=== PATIENT | female | born 1960 | race Caucasian/White ===

== ENCOUNTER 2016-08-10 02:33 | Emergency (ER) | payer OTHER ==
[~2016-08-10] VITALS: Ht 157.5 cm; Wt 115.0 kg
[2016-08-10 02:37] VITALS: BP 203/93; PULSE 112; RESP 20; TEMP 99; O2SAT 97
[2016-08-10] MEDS ORDERED: ACETAMINOPHEN/HYDROcodone 325 MG/5 MG TAB PO ONE (03:15)
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
[2016-08-10] MEDS ORDERED: HYDR-3533 PO (03:30)
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
[2016-08-10 06:43] VITALS: BP 176/72; PULSE 89; RESP 14; O2SAT 98
[2016-08-10 07:42] VITALS: BP 168/70
[2016-08-16] MEDS ORDERED: FURO1TAB62 PO ×2 (11:33→12:05)
[2016-08-16] MEDS ORDERED: GABA300C5 PO ×2 (11:33→12:05)
[2016-08-16] MEDS ORDERED: AMLO10 PO ×2 (11:33→12:05)
[2016-08-16] MEDS ORDERED: LISI-519 PO ×2 (11:33→12:05)
[2016-08-16] MEDS ORDERED: SPIR25TA PO (11:33)
[2016-08-16] MEDS ORDERED: ATOR20TA15 PO ×2 (11:33→12:05)
[2016-08-16] MEDS ORDERED: ASPI325T PO (11:33)
[2016-08-29] MEDS ORDERED: DIVA250T3 PO (14:30)
[2016-09-03] MEDS ORDERED: CIPR250T52 PO (11:02)
[2016-09-23] MEDS ORDERED: ATOR20TA15 PO (09:51)
[2016-09-23] MEDS ORDERED: AMLO10 PO (09:51)
[2016-09-23] MEDS ORDERED: LISI-519 PO (09:51)
[2016-09-23] MEDS ORDERED: FURO1TAB62 PO (09:51)
[2016-09-25] MEDS ORDERED: GABA300C5 PO (12:35)
[2016-09-26] MEDS ORDERED: GABA300C5 PO (11:36)
[2016-09-26] MEDS ORDERED: FURO1TAB62 PO (11:36)
[2016-09-26] MEDS ORDERED: ATOR20TA15 PO (11:36)
[2016-09-26] MEDS ORDERED: LISI-519 PO (11:36)
[2016-09-26] MEDS ORDERED: AMLO10 PO (11:36)
== END 2016-08-10 07:58 | disposition home or self-care (01) ==
LOC: NEPB 02:33
DX: S62.101A Fracture of unspecified carpal bone, right wrist, initial encounter for closed fracture (principal); Y04.8XXA Assault by other bodily force, initial encounter
CPT/HCPCS: 29125; 73110; 73130

== ENCOUNTER 2016-08-20 21:15 | Emergency (ER) | payer OTHER ==
[~2016-08-20] VITALS: Ht 162.6 cm; Wt 115.0 kg
[~2016-08-20 21:15] MED LIST: AMLO10 PO; ASPI325T PO; ATOR20TA15 PO; FURO1TAB62 PO; GABA300C5 PO; HYDR-3533 PO; LISI-519 PO; SPIR25TA PO
[2016-08-20 21:17] VITALS: BP 229/131; PULSE 106; RESP 16; TEMP 98.6; O2SAT 95
[2016-08-21 05:22] VITALS: BP 178/91
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
--- NOTE | 2016-08-21 06:41 | RADRPT ---
EXAM DATE/TIME: 08/21/2016 06:18 [facility] COMPARISON: No previous studies available for comparison. INDICATIONS : Patient states no known injury. Pain started yesterday afternoon in palm of left hand. MEDICAL HISTORY : Hypertension. Stroke. SURGICAL HISTORY : None. ENCOUNTER: Initial ACUITY: 1 day PAIN SCORE: 10/10 LOCATION: Left Hand FINDINGS: Three view examination of the left hand demonstrates no soft tissue swelling, dislocation, or fractur e. The carpal bones appear intact. The interphalangeal and metacarpophalangeal joints are intact. Bony mineralization is normal. CONCLUSION: 1. Negative examination of the hand. Gildardo Antonio MD on August 21, 2016 at 6:39 Board Certified Radiologist. This report was verified electronically.
[2016-08-29] MEDS ORDERED: DIVA250T3 PO (14:30)
[2016-09-03] MEDS ORDERED: CIPR250T52 PO (11:02)
[2016-09-23] MEDS ORDERED: ATOR20TA15 PO (09:51)
[2016-09-23] MEDS ORDERED: LISI-519 PO (09:51)
[2016-09-23] MEDS ORDERED: AMLO10 PO (09:51)
[2016-09-23] MEDS ORDERED: FURO1TAB62 PO (09:51)
[2016-09-25] MEDS ORDERED: GABA300C5 PO (12:35)
[2016-09-26] MEDS ORDERED: FURO1TAB62 PO (11:36)
[2016-09-26] MEDS ORDERED: AMLO10 PO (11:36)
[2016-09-26] MEDS ORDERED: ATOR20TA15 PO (11:36)
[2016-09-26] MEDS ORDERED: GABA300C5 PO (11:36)
[2016-09-26] MEDS ORDERED: LISI-519 PO (11:36)
== END 2016-08-21 06:56 | disposition home or self-care (01) ==
LOC: NEPB 21:15
DX: M79.642 Pain in left hand (principal)
CPT/HCPCS: 73130; 99283

== ENCOUNTER 2016-10-08 19:37 | Observation (INO) | payer OTHER ==
[~2016-10-08] VITALS: Ht 157.5 cm; Wt 113.0 kg
[~2016-10-08 19:37] MED LIST changes: +DIVA250T3 PO
[2016-10-08 19:38] VITALS: BP 167/79; PULSE 118; RESP 22; TEMP 98.8; O2SAT 93
[2016-10-08] MEDS ORDERED: SODIUM CHLORIDE 0.9% FLUSH 10 ML FLUSH IVF PRN (20:15)
[2016-10-08] MEDS ORDERED: methylPREDNISolone SOD SUCC 125 MG/2 ML VIAL IVP ONE (20:15)
[2016-10-08] MEDS: RESP: ALBUTEROL 2.5 MG/IPRATROPIUM 0.5 MG NEB (SCH) INH ×2 (20:23→20:24)
[2016-10-08 20:43] LABS: AUTOMATED NEUTROPHIL # 4.3 TH/MM3 (1.8-7.7); BASOPHIL # 0.1 TH/MM3 (0-0.2); BASOPHIL % 0.9 % (0.0-2.0); EOSINOPHIL # 0.2 TH/MM3 (0-0.4); HEMATOCRIT 43.6 % (35.0-46.0); HEMO FLAGS DIFF FINAL; MEAN CORPUSCULAR HEMOGLOBIN 28.5 PG (27.0-34.0); MEAN CORPUSCULAR HGB CONC 33.5 % (32.0-36.0); MONO % 10.7 % (0.0-8.0); NEUT % 69.4 % (16.0-70.0); PLATELET COUNT 217 TH/MM3 (150-450); RED BLOOD COUNT 5.13 MIL/MM3 (4.00-5.30); RED CELL DISTRIBUTION WIDTH 13.1 % (11.6-17.2); WHITE BLOOD COUNT 6.1 TH/MM3 (4.0-11.0)
[2016-10-08 20:49] LABS: BLOOD, URINE NEG (NEG); COMMENT (UR) CULT NOT INDICATED; CULTURE IF INDICATED CULT NOT INDICATED; GLUCOSE,URINE NEG (NEG); KETONE, URINE NEG (NEG); MUCUS URINE FEW /lpf (OCC); NITRITE,URINE NEG (NEG); PH, URINE 6.5 (5.0-8.5); SQUAMOUS EPITHELIAL CELL URINE 1 /hpf (0-5); URINE COLOR YELLOW (YELLW/STRAW)
[2016-10-08 20:57] LABS: APTT (PATIENT) 27.3 SEC (24.3-30.1); PROTHROMBIN TIME - PATIENT 10.6 SEC (9.8-11.6)
[2016-10-08 21:07] LABS: ANION GAP 7 MEQ/L (5-15); BICARBONATE 31.8 MEQ/L (21.0-32.0); BLOOD UREA NITROGEN 10 MG/DL (7-18); CHLORIDE 102 MEQ/L (98-107); GLOMERULAR FILTRATION RATE 72 ML/MIN (>89); POTASSIUM 3.6 MEQ/L (3.5-5.1); SODIUM (NA) 141 MEQ/L (136-145)
[2016-10-08 21:08] LABS: CREATINE KINASE 80 U/L (26-192)
--- NOTE | 2016-10-08 21:18 | RADRPT ---
EXAM DATE/TIME: 10/08/2016 20:20 [facility] COMPARISON: No previous studies available for comparison. INDICATIONS : Difficulty breathing. MEDICAL HISTORY : None. SURGICAL HISTORY : None. ENCOUNTER: Initial ACUITY: 2 days PAIN SCORE: 2/10 LOCATION: Bilateral chest FINDINGS: There is an asymmetric opacity in the right pulmonary apex measuring 4.2 x 1.3 cm. Cannot exclude a mass. The remainder of the lungs are clear. The heart is normal size configuration. Both hemidiaph ragms are well delineated. CONCLUSION: Elongated opacity at the right apex is of uncertain significance; cannot exclude a pulmonary mass. R ecommend noncontrast CT thorax. Forest Marte MD on October 08, 2016 at 21:15 Board Certified Radiologist. This report was verified electronically.
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
[2016-10-08] MEDS ORDERED: RESP: ALBUTEROL 2.5 MG/3 ML NEB (SCH) NEB ONE (22:15)
--- NOTE | 2016-10-08 22:48 | RADRPT ---
EXAM DATE/TIME: 10/08/2016 22:06 [facility] COMPARISON: CHEST SINGLE AP, October 08, 2016, 20:20. INDICATIONS : Shortness of breath starting last night with abnormal chest x-ray. RADIATION DOSE: 16.49 CTDIvol (mGy) MEDICAL HISTORY : Hypertension. SURGICAL HISTORY : None. ENCOUNTER: Initial ACUITY: 1 day PAIN SCALE: 0/10 LOCATION: chest TECHNIQUE: Volumetric scanning of the chest was performed. Using automated exposure control and adjustment of t he mA and/or kV according to patient size, radiation dose was kept as low as reasonably achievable to obtain optimal diagnostic quality images. FINDINGS: LUNGS: There is no consolidation or pneumothorax. No concerning pulmonary nodule is visualized. PLEURAE: There is no pleural thickening or pleural effusion. MEDIASTINUM: The heart and great vessels demonstrate no acute abnormality. There is no mediastinal or hilar lymph adenopathy. 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 AXILLAE: Within normal limits. No lymphadenopathy. MUSCULOSKELETAL: Within normal limits for patient age. MISCELLANEOUS: The visualized upper abdominal organs demonstrate no acute abnormality. CONCLUSION: 1. No evidence of right upper lobe mass. There is no imaging correlate for the opacity seen at the r ight apex on the chest x-ray. 2. No evidence of mediastinal adenopathy. 3. The osseous structures are grossly intact. Forest Marte MD on October 08, 2016 at 22:43 Board Certified Radiologist. This report was verified electronically.
[2016-10-09] VITALS (9 sets, daily range): BP systolic 103–136; BP diastolic 53–72; PULSE 68–88; RESP 16–22; TEMP 97.8–98.5; O2SAT 92–97
[2016-10-09] MEDS ORDERED: ONDANSETRON HCL 4 MG/2 ML VIAL IV PUSH PRN (00:15)
[2016-10-09] MEDS ORDERED: ACETAMINOPHEN 325 MG TAB PO PRN (00:15)
[2016-10-09] MEDS ORDERED: RESP: ALBUTEROL 1.25 MG/3 ML NEB (PRN) NEB (00:15)
[2016-10-09] MEDS: methylPREDNISolone SOD SUCC 125 MG/2 ML VIAL IV PUSH SCH ×2 (02:23→08:42)
[2016-10-09] MEDS ORDERED: ACETAMINOPHEN/HYDROcodone 325 MG/5 MG TAB PO PRN (03:00)
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
[2016-10-09] MEDS: RESP: ALBUTEROL 2.5 MG/IPRATROPIUM 0.5 MG NEB (SCH) NEB ×4 (05:14→20:29)
[2016-10-09] MEDS: SPIRONOLACTONE 25 MG TAB PO SCH (08:41)
[2016-10-09] MEDS: FUROSEMIDE 20 MG TAB PO SCH (08:42)
[2016-10-09] MEDS: LISINOPRIL 5 MG TAB PO SCH (08:42)
[2016-10-09] MEDS: ASPIRIN 325 MG TAB PO SCH (08:42)
[2016-10-09] MEDS: DIVALPROEX SODIUM E.R. 250 MG TAB PO SCH (09:00)
--- NOTE | 2016-10-09 09:19 | EKG ---
Date Performed: 10/08/2016 Time Performed: 20:13:44 PTAGE: 56 years EKG: Sinus rhythm NONSPECIFIC T-WAVE ABNORMALITY BORDERLINE ECG NO PREVIOUS TRACING DOCTOR: León Nguyễn Interpretating Date/Time 10/09/2016 09:17:14
--- NOTE | 2016-10-09 14:25 | HHI.PR ---
Subjective Remarks Follow-up for COPD exacerbation. The patient feels like her shortness of breath and wheezing have improved somewhat overnight, but are not yet at baseline. She does report having hot flashes and sweating, denies any specific fevers or chills. She's having a cough with clear sputum. She continues to smoke. 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 Objective Vitals Vital Signs Date Time Temp Pulse Resp B/P Pulse Ox O2 Delivery O2 Flow Rate FiO2 10/09/16 11:04 98.4 87 20 129/72 92 10/09/16 08:48 98.2 88 18 132/71 93 10/09/16 07:35 96 Nasal Cannula 2.00 10/09/16 03:47 98.5 68 22 129/59 94 10/08/16 20:16 99 18 96 Nasal Cannula 2 10/08/16 19:55 92 Nasal Cannula 2 10/08/16 19:38 98.8 118 22 167/79 93 Room Air Result Diagram: 10/08/16201410/08/162014 Imaging Last Impressions Chest X-Ray 10/08/162002 Signed Impressions: Service Date/Time: Saturday, October 08, 2016 20:20 - CONCLUSION: Elongated opacity at the right apex is of uncertain significance; cannot exclude a pulmonary mass. Recommend noncontrast CT thorax. Forest Marte MD Chest CT 10/08/16 0000 Signed Impressions: Service Date/Time: Saturday, October 08, 2016 22:06 - CONCLUSION: 1. No evidence of right upper lobe mass. There is no imaging correlate for the opacity seen at the right apex on the chest x-ray. 2. No evidence of mediastinal adenopathy. 3. The osseous structures are grossly intact. Forest Marte MD Objective Remarks GENERAL: Well-developed well-nourished. Morbidly obese. In no acute distress. SKIN: Warm and dry. No lesions noted. HEENT: Normocephalic. Pupils equal and round. Mucous membranes pink and moist. CARDIOVASCULAR: Regular rate and rhythm. No murmur appreciated. RESPIRATORY: No accessory muscle use. Decreased breath sounds in bilateral lung bases with occasional wheezing. GASTROINTESTINAL: Abdomen soft, non-tender, nondistended. Bowel sounds x4. MUSCULOSKELETAL: Right arm splint. No clubbing or cyanosis. No edema. NEUROLOGICAL: Awake and alert. No focal neurological deficits. Moves upper and lower extremities spontaneously. Normal speech. PSYCHIATRIC: Appropriate mood and affect; insight and judgment fair to normal. A/P Problem List: (1) COPD exacerbation ICD Code: J44.1 Status: Acute (2) Right wrist fracture ICD Code: S62.101A Status: Acute (3) Tobacco abuse ICD Code: Z72.0 Status: Chronic Assessment and Plan Ms. Bach is a 56-year-old female with a history of hypertension, hyperlipidemia, and intracranial hemorrhage who presented to the emergency room on 10/08/2016 for evaluation of difficulty breathing. Acute exacerbation of likely COPD Reviewed: Chest CT with no mass or mediastinal adenopathy. Afebrile with no leukocytosis. - Scheduled and as needed nebs. - Solu-Medrol IV, taper dose - Supplemental oxygen via nasal cannula titrated to maintain oxygen saturation greater than 92% - Recommended PFTs as outpatient after acute exacerbation has resolved. Discussed with the patient. - Guaifenesin DM as needed for cough Right wrist distal radius fracture Patient is still in a sugar tong splint placed in the ER 08/10/2016 - Needs outpatient orthopedic follow-up Tobacco abuse - Counseled patient on smoking cessation Other chronic medical conditions include HTN, ICH, HLD: Stable at this time and will continue home medications as indicated DVT prophylaxis: SCDs Discharge Planning Hopefully discharge in 12 days if shortness of breath and wheezing continue to improve Problem Qualifiers (1) Right wrist fracture: Mumtaz Murguia Oct 09, 2016 14:25
[2016-10-09] MEDS ORDERED: guaiFENesin/DEXTROMETHORPHAN 200 MG/20 MG/10 ML CUP PO PRN (14:30)
[2016-10-09] MEDS: methylPREDNISolone SOD SUCC 40 MG/1 ML VIAL IV PUSH SCH (17:29)
[2016-10-09] MEDS ORDERED: ATORVASTATIN 20 MG TAB PO SCH (21:00)
[2016-10-09] MEDS ORDERED: GABAPENTIN 300 MG CAP PO SCH (21:00)
[2016-10-10] VITALS: BP 94/48; PULSE 76; RESP 20; TEMP 98.2; O2SAT 92
[2016-10-10] MEDS: methylPREDNISolone SOD SUCC 40 MG/1 ML VIAL IV PUSH SCH ×2 (00:14→08:19)
[2016-10-10 04:00] VITALS: BP 118/59; PULSE 85; RESP 20; TEMP 98.2; O2SAT 91
[2016-10-10 07:37] VITALS: BP 139/66; PULSE 77; RESP 20; TEMP 98; O2SAT 92
[2016-10-10] MEDS: LISINOPRIL 5 MG TAB PO SCH (08:20)
[2016-10-10] MEDS: ASPIRIN 325 MG TAB PO SCH (08:20)
[2016-10-10] MEDS: SPIRONOLACTONE 25 MG TAB PO SCH (08:20)
[2016-10-10] MEDS: DIVALPROEX SODIUM E.R. 250 MG TAB PO SCH (08:21)
[2016-10-10] MEDS: FUROSEMIDE 20 MG TAB PO SCH (08:21)
[2016-10-10] MEDS: RESP: ALBUTEROL 2.5 MG/IPRATROPIUM 0.5 MG NEB (SCH) NEB ×2 (08:42→14:18)
[2016-10-10 08:44] VITALS: O2SAT 95
[2016-10-10] MEDS ORDERED: AZITHROMYCIN 250 MG TAB PO ONE (09:00)
[2016-10-10] MEDS ORDERED: FLUTICASONE PROPIONATE 50 MCG/ACT 16 GM NASAL SPRAY NASAL SCH (10:00)
--- NOTE | 2016-10-10 10:52 | HHI.PR ---
Subjective Remarks Follow-up for COPD exacerbation. The patient reports her breathing has improved. She is complaining of sneezing and sinus drainage while on oxygen. She states that she was on fluticasone spray and an antihistamine in the past, but has not been on them since she moved to [place]. Objective Vitals Vital Signs Date Time Temp Pulse Resp B/P Pulse Ox O2 Delivery O2 Flow Rate FiO2 10/10/16 08:44 95 Nasal Cannula 2.00 10/10/16 07:37 98.0 77 20 139/66 92 10/10/16 04:00 98.2 85 20 118/59 91 10/10/16 00:00 98.2 76 20 94/48 92 10/09/16 20:30 97 Nasal Cannula 2.00 10/09/16 19:29 98.2 78 18 103/53 92 10/09/16 17:45 92 21 10/09/16 15:25 97.9 74 16 136/67 95 10/09/16 14:18 97.8 10/09/16 11:04 98.4 87 20 129/72 92 I/O 10/09/16 10/09/16 10/09/16 10/10/16 10/10/16 10/10/16 07:00 15:00 23:00 07:00 15:00 23:00 Output Total 450 ml Balance -450 ml Output Urine Total 450 ml Result Diagram: 10/08/16201410/08/162014 Imaging Last Impressions Chest X-Ray 10/08/162002 Signed Impressions: Service Date/Time: Saturday, October 08, 2016 20:20 - CONCLUSION: Elongated opacity at the right apex is of uncertain significance; cannot exclude a pulmonary mass. Recommend noncontrast CT thorax. Forest Marte MD Chest CT 10/08/16 0000 Signed Impressions: Service Date/Time: Saturday, October 08, 2016 22:06 - CONCLUSION: 1. No evidence of right upper lobe mass. There is no imaging correlate for the opacity seen at the right apex on the chest x-ray. 2. No evidence of mediastinal adenopathy. 3. The osseous structures are grossly intact. Forest Marte MD Objective Remarks GENERAL: Well-developed well-nourished. Morbidly obese. In no acute distress. SKIN: Warm and dry. No lesions noted. HEENT: Normocephalic. Pupils equal and round. Mucous membranes pink and moist. CARDIOVASCULAR: Regular rate and rhythm. No murmur appreciated. RESPIRATORY: No accessory muscle use. Decreased breath sounds in bilateral lung bases with minimal wheezing. GASTROINTESTINAL: Abdomen soft, non-tender, nondistended. Bowel sounds x4. MUSCULOSKELETAL: Right arm splint. No clubbing or cyanosis. No edema. NEUROLOGICAL: Awake and alert. No focal neurological deficits. Moves upper and lower extremities spontaneously. Normal speech. PSYCHIATRIC: Appropriate mood and affect; insight and judgment fair to normal. A/P Problem List: (1) COPD exacerbation ICD Code: J44.1 Status: Acute (2) Right wrist fracture ICD Code: S62.101A Status: Acute (3) Tobacco abuse ICD Code: Z72.0 Status: Chronic Assessment and Plan Ms. Bach is a 56-year-old female with a history of hypertension, hyperlipidemia, and intracranial hemorrhage who presented to the emergency room on 10/08/2016 for evaluation of difficulty breathing. Acute exacerbation of likely COPD Reviewed: Chest CT with no mass or mediastinal adenopathy. Afebrile with no leukocytosis. - Scheduled and as needed nebs. - Solu-Medrol IV, taper dose - Supplemental oxygen via nasal cannula titrated to maintain oxygen saturation greater than 92% - Recommended PFTs as outpatient after acute exacerbation has resolved. - Guaifenesin DM as needed for cough - Azithromycin - Check walk test Sinus congestion: Acute on chronic - Fluticasone nasal spray - Claritin daily Right wrist distal radius fracture Patient is still in a sugar tong splint placed in the ER 08/10/2016 - Needs outpatient orthopedic follow-up Tobacco abuse - Counseled patient on smoking cessation Other chronic medical conditions include HTN, ICH, HLD: Stable at this time and will continue home medications as indicated DVT prophylaxis: SCDs Written by Mumtaz Murguia, acting as scribe for Dr. Lambert on 10/10/16 at around 10: 50. Discharge Planning Hopefully discharge later today vs tomorrow a.m. if shortness of breath and wheezing continue to improve. Follow-up results of home oxygen walk test. 1700 patient's O2 saturation was 95% on ambulatory without test. Discharge patient to home Condition on discharge: Improved Regular Diet as tolerated Regular activity Rx written: Azithromycin, Claritin, Flonase, prednisone Follow-up with primary care physician and orthopedic orthopedics for wrist fracture Mumtaz Murguia Oct 10, 2016 10:52 Kwaku Lambert DO Oct 11, 2016 00:17
[2016-10-10] MEDS ORDERED: LORATADINE 10 MG TAB PO SCH (11:00)
[2016-10-10 16:05] VITALS: BP 108/53; PULSE 93; RESP 22; TEMP 98; O2SAT 91
[2016-10-10] MEDS ORDERED: ALBUAER3 INH (16:55)
[2016-10-10] MEDS ORDERED: LORA-361 PO (16:55)
[2016-10-10] MEDS ORDERED: FLUT50SP NASAL (16:55)
[2016-10-10] MEDS ORDERED: AZIT250T3 PO (16:55)
[2016-10-10] MEDS ORDERED: PRED20 PO (16:55)
[2016-10-10] MEDS ORDERED: methylPREDNISolone SOD SUCC 40 MG/1 ML VIAL IV PUSH SCH (20:00)
[2016-10-11] MEDS ORDERED: AZITHROMYCIN 250 MG TAB PO SCH (09:00)
== END 2016-10-10 20:15 | disposition home or self-care (01) ==
LOC: NEPC 19:37 → NEDA 10-09 00:14 → NEPGCP 10-09 03:21
PROVIDERS: ADMIT Hospitalist; ATTEND Hospitalist
DX: J44.1 Chronic obstructive pulmonary disease with (acute) exacerbation (principal); R09.81 Nasal congestion; I10 Essential (primary) hypertension; E78.5 Hyperlipidemia, unspecified; M21.371 Foot drop, right foot; F17.200 Nicotine dependence, unspecified, uncomplicated; S52.591D Other fractures of lower end of right radius, subsequent encounter for closed fracture with routine healing; E78.00 Pure hypercholesterolemia, unspecified; Z86.73 Personal history of transient ischemic attack (TIA), and cerebral infarction without residual deficits; Z79.82 Long term (current) use of aspirin; Z88.0 Allergy status to penicillin; X58.XXXD Exposure to other specified factors, subsequent encounter
CPT/HCPCS: 71010; 71250; 80048; 81001; 82550; 83880; 84484; 85025; 85610; 85730; 93005; 94620; 94640; 94664; 96374; 99285; G0378; J2920; J2930; J7613